=== PATIENT | male | born 1985 | race Caucasian/White ===

== ENCOUNTER 2018-05-28 12:11 | Emergency (ER) | payer OTHER ==
[2018-05-28] MEDS ORDERED: Sodium Chloride 0.9% 1,000 ML IV STA (12:58)
[2018-05-28] MEDS ORDERED: Ondansetron 4 MG/2 ML SDV IVPUSH ONE (12:58)
[2018-05-28] MEDS ORDERED: Sodium Chloride 0.9% 10 ML Syringe FLUSH PRN (12:58)
[2018-05-28] MEDS ORDERED: HYDROmorphone 0.5 MG/0.5 ML SYRINGE IVPUSH ONE ×2 (12:59→14:48)
--- NOTE | 2018-05-28 15:29 | EDM.PDOC ---
ED HPI GENERAL MEDICAL PROBLEM - General Chief Complaint: Gastrointestinal Problem Stated Complaint: VOMITING,DIARRHEA,ABD PAIN Time Seen by Provider: 05/28/18 12:42 Source of Information: Reports: Patient History Limitations: Reports: No Limitations - History of Present Illness INITIAL COMMENTS - FREE TEXT/NARRATIVE: The patient presents with bloody diarrhea, stomach cramps, and nausea. This started this morning. He may have had some bad chicken last night. He has not been around anyone else who is sick. He has no fever, chills, headache, chest pain, or shortness of breath. He has no dysuria. Onset: Gradual Duration: Hour(s): Location: Reports: Abdomen Quality: Reports: Other (Cramping) Severity: Moderate Improves with: Reports: None Worsens with: Reports: None Associated Symptoms: Reports: Nausea/Vomiting. Denies: Chest Pain, Fever/Chills , Headaches, Shortness of Breath lower abdominal Pain Score (Numeric/FACES): 10 - Related Data Allergies Allergy/AdvReac Type Severity Reaction Status Date / Time No Known Allergies Allergy Verified 05/28/18 12:38 Home Meds: Home Meds Dabigatran [Pradaxa] 150 mg PO BID 05/28/18 [History] Ondansetron [Zofran ODT] 4 mg PO Q6H PRN #20 tab.dis 05/28/18 [Rx] Sulfamethoxazole/Trimethoprim [Bactrim Ds Tablet] 1 each PO BID #6 tablet [Rx] Past Medical History Other Cardiovascular History: on blood thinners for DVT's Hematologic History: Reports: Bleeding Disorder - Past Surgical History Musculoskeletal Surgical History: Reports: Other (See Below) Other Musculoskeletal Surgeries/Procedures:: back surgery Social & Family History - Family History Family Medical History: Noncontributory - Tobacco Use Smoking Status *Q: Current Every Day Smoker Years of Tobacco use: 10 Packs/Tins Daily: 1 - Caffeine Use Caffeine Use: Reports: Coffee - Recreational Drug Use Recreational Drug Use: No ED ROS GENERAL - Review of Systems Review Of Systems: See Below Constitutional: Reports: No Symptoms HEENT: Reports: No Symptoms Respiratory: Reports: No Symptoms Cardiovascular: Reports: No Symptoms Endocrine: Reports: No Symptoms GI/Abdominal: Reports: Abdominal Pain, Bloody Stool, Diarrhea, Nausea. Denies: Vomiting : Reports: No Symptoms Musculoskeletal: Reports: No Symptoms ED EXAM, GI/ABD - Physical Exam Exam: See Below Exam Limited By: No Limitations General Appearance: Alert, No Apparent Distress Ears: Normal External Exam Nose: Normal Inspection Head: Atraumatic, Normocephalic Neck: Normal Inspection Respiratory/Chest: No Respiratory Distress, Lungs Clear, Normal Breath Sounds Cardiovascular: Regular Rate, Rhythm, No Edema, No Murmur GI/Abdominal Exam: Soft, No Organomegaly, No Mass, Tender (Mild generalized tenderness) Course - Vital Signs Last Recorded V/S: Last Vital Signs Temp 98.5 F 05/28/18 12:30 Pulse 140 H 05/28/18 12:30 Resp 20 05/28/18 12:30 BP 149/120 H 05/28/18 12:30 Pulse Ox 100 05/28/18 12:30 - Orders/Labs/Meds Orders: Active Orders 24 hr Category Date Time Status Peripheral IV Care [RC] . DIRECTED Care 05/28/18 12:58 Active UA W/MICROSCOPIC [URIN] Stat Lab 05/28/18 14:55 Ordered Sodium Chloride 0.9% [Saline Flush] Med 05/28/18 12:58 Active 10 ml FLUSH ASDIRECTED PRN ED Antiemetic Medication Reflex [OM.PC] Stat Oth 05/28/18 12:58 Ordered Peripheral IV Insertion Adult [OM.PC] Stat Oth 05/28/18 12:58 Ordered Medication Orders Sodium Chloride (Saline Flush) 10 ml FLUSH ASDIRECTED PRN PRN Reason: Keep Vein Open Last Admin: 05/28/18 13:13 Dose: 10 ml Labs: Laboratory Tests 05/28/18 05/28/18 05/28/18 Range/Units 12:50 12:50 14:55 WBC 9.00 (4.23-9.07) K/mm3 RBC 5.20 (4.63-6.08) M/mm3 Hgb 16.8 (13.7-17.5) gm/L Hct 48.5 (40.1-51.0) % MCV 93.3 H (79.0-92.2) fl MCH 32.3 H (25.7-32.2) pg MCHC 34.6 (32.2-35.5) g/dl RDW Std Deviation 42.1 (35.1-43.9) fL Plt Count 192 (163-337) K/mm3 MPV 9.8 (9.4-12.3) fl Neut % (Auto) 83.5 H (34.0-67.9) % Lymph % (Auto) 10.6 L (21.8-53.1) % [place]pine % (Auto) 5.4 (5.3-12.2) % Eos % (Auto) 0.1 L (0.8-7.0) Baso % (Auto) 0.2 (0.1-1.2) % Neut # (Auto) 7.51 H (1.78-5.38) K/mm3 Lymph # (Auto) 0.95 L (1.32-3.57) K/mm3 Alpine # (Auto) 0.49 (0.30-0.82) K/mm3 Eos # (Auto) 0.01 L (0.04-0.54) K/mm3 Baso # (Auto) 0.02 (0.01-0.08) K/mm3 Sodium 140 (136-145) mEq/L Potassium 4.4 (3.5-5.1) mEq/L Chloride 106 (98-107) mEq/L Carbon Dioxide 25 (21-32) mEq/L Anion Gap 13.4 (5-15) BUN 13 (7-18) mg/dL Creatinine 1.1 (0.7-1.3) mg/dL Est Cr Clr Drug Dosing 114.17 mL/min Estimated GFR (MDRD) > 60 (>60) mL/min BUN/Creatinine Ratio 11.8 L (14-18) Glucose 102 (74-106) mg/dL Calcium 9.1 (8.5-10.1) mg/dL Total Bilirubin 0.4 (0.2-1.0) mg/dL AST 25 (15-37) U/L ALT 36 (16-63) U/L Alkaline Phosphatase 57 (46-116) U/L Total Protein 7.0 (6.4-8.2) g/dl Albumin 3.9 (3.4-5.0) g/dl Globulin 3.1 gm/dL Albumin/Globulin Ratio 1.3 (1-2) Lipase 176 (73-393) U/L Urine Color Light yellow (Yellow) Urine Appearance Clear (Clear) Urine pH 6.0 (5.0-8.0) Ur Specific [place] 1.020 (1.005-1.030) Urine Protein Negative (Negative) Urine Glucose (UA) Negative (Negative) Urine Ketones Negative (Negative) Urine Occult Blood Negative (Negative) Urine Nitrite Negative (Negative) Urine Bilirubin Negative (Negative) Urine Urobilinogen 0.2 (0.2-1.0) Ur Leukocyte Esterase Negative (Negative) Urine RBC 0-5 (0-5) /hpf Urine WBC 0-5 (0-5) /hpf Ur Epithelial Cells Not seen (0-5) /hpf Urine Bacteria Not seen (FEW) /hpf Urine Mucus Not seen (FEW) /hpf Meds: Medications Generic Name Dose Route Start Last Admin Trade Name Freq PRN Reason Stop Dose Admin Sodium Chloride 10 ml 05/28/18 12:58 05/28/18 13:13 Saline Flush FLUSH 10 ml ASDIRECTED PRN Administration Keep Vein Open Discontinued Medications Generic Name Dose Route Start Last Admin Trade Name Freq PRN Reason Stop Dose Admin Hydromorphone HCl 0.5 mg 05/28/18 12:59 05/28/18 13:12 Dilaudid IVPUSH 05/28/18 13:00 0.5 mg ONETIME ONE Administration Hydromorphone HCl 0.5 mg 05/28/18 14:48 05/28/18 14:54 Dilaudid IVPUSH 05/28/18 14:49 0.5 mg ONETIME ONE Administration Sodium Chloride 1,000 mls @ 1,000 mls/hr 05/28/18 12:58 05/28/18 13:10 Normal Saline IV 05/28/18 13:57 1,000 mls/hr .BOLUS STA Administration Ondansetron HCl 4 mg 05/28/18 12:58 05/28/18 13:11 Zofran IVPUSH 05/28/18 12:59 4 mg ONETIME ONE Administration - Re-Assessments/Exams Free Text/Narrative Re-Assessment/Exam: 05/28/18 15:26 I ordered an IV NS 1L bolus, zofran 4mg IV, dilaudid 0.5mg IV, labs, UA and stool studies. His CBC and CMP look good. His UA shows no UTI. He could not give us a stool sample. I feel this is food poisoning. I will get him on some bactrim for 3 days. I will also give him some zofran. Departure - Departure Time of Disposition: 15:30 Disposition: Home, Self-Care 01 Condition: Good Clinical Impression: Food poisoning Qualifiers: Encounter type: initial encounter Injury intent: accidental or unintentional Qualified Code(s): T62.91XA - Toxic effect of unspecified noxious substance eaten as food, accidental (unintentional), initial encounter - Discharge Information *PRESCRIPTION DRUG MONITORING PROGRAM REVIEWED*: No *COPY OF PRESCRIPTION DRUG MONITORING REPORT IN PATIENT ARTHUR: No Prescriptions: Ondansetron [Zofran ODT] 4 mg PO Q6H PRN #20 tab.dis PRN Reason: Nausea\vomiting Sulfamethoxazole/Trimethoprim [Bactrim Ds Tablet] 1 each PO BID #6 tablet Referrals: PCP,None [Primary Care Provider] - Marion Mayen PA-C [Physician Community Relations Assistant] - 1 Week Additional Instructions: Drink plenty of fluids. Take the zofran every 6 hours as needed for nausea or vomiting. Take bactrim 1 pill 2 times per day for 3 days. Please return if you are worse. - My Orders Last 24 Hours: My Active Orders 05/28/18 12:58 Peripheral IV Care [RC] . DIRECTED Sodium Chloride 0.9% [Saline Flush] 10 ml FLUSH ASDIRECTED PRN ED Antiemetic Medication Reflex [OM.PC] Stat Peripheral IV Insertion Adult [OM.PC] Stat 05/28/18 14:55 UA W/MICROSCOPIC [URIN] Stat - Assessment/Plan Last 24 Hours: My Active Orders 05/28/18 12:58 Peripheral IV Care [RC] . DIRECTED Sodium Chloride 0.9% [Saline Flush] 10 ml FLUSH ASDIRECTED PRN ED Antiemetic Medication Reflex [OM.PC] Stat Peripheral IV Insertion Adult [OM.PC] Stat 05/28/18 14:55 UA W/MICROSCOPIC [URIN] Stat
== END 2018-05-28 15:42 | disposition home or self-care (01) ==
LOC: JD.ED 12:11
DX: T62.91XA Toxic effect of unspecified noxious substance eaten as food, accidental (unintentional), initial encounter (principal); F17.210 Nicotine dependence, cigarettes, uncomplicated; Z79.01 Long term (current) use of anticoagulants; Z79.899 Other long term (current) drug therapy
CPT/HCPCS: 36415; 80053; 81001; 83690; 85025; 96361; 96374; 96375; 96376; 99284; J1170; J2405; J7040; J7050